=== PATIENT | female | born 1940 | race Caucasian/White ===

== ENCOUNTER → 2017-02-22 | Outpatient (CLI) | payer MEDICARE, OTHER | END | disposition home or self-care (01) | LOC: Rad HDHVI 11:06 | PROVIDERS: ATTEND Internal Medicine Cardiovascular Disease | DX: I70.0 Atherosclerosis of aorta (principal) | CPT/HCPCS: 71020 ==

== ENCOUNTER → 2017-10-24 | Outpatient (CLI) | payer MEDICARE, OTHER ==
[~2017-10-24] VITALS: Ht 162.6 cm; Wt 60.8 kg
[~2017-10-24] MED LIST: ADENOSINE 51 MG in GIVE UN-DILUTED 0 ML IV ONE; ADENOSINE 90 MG/30 ML INJ IV ONE; AML5T PO; ATEN-60 PO; FLUO-125 PO; OMEP20TA PO
== END | disposition home or self-care (01) ==
LOC: Rad HDHVI 12:56
PROVIDERS: ATTEND Internal Medicine Cardiovascular Disease
DX: Z45.018 Encounter for adjustment and management of other part of cardiac pacemaker (principal); I07.1 Rheumatic tricuspid insufficiency; I10 Essential (primary) hypertension; R06.01 Orthopnea
CPT/HCPCS: 78452; 93005; 93306; 96374; 96375; A9500; J0153

== ENCOUNTER → 2017-10-28 | Outpatient (CLI) | payer MEDICARE, OTHER ==
[~2017-10-28] MED LIST changes: -ADENOSINE 51 MG in GIVE UN-DILUTED 0 ML IV ONE; -ADENOSINE 90 MG/30 ML INJ IV ONE
[2017-10-28 08:10] VITALS: BP 131/74
[2017-10-28 08:40] VITALS: BP 145/80
[2017-10-28 12:29] LABS: Basophils # (auto) 0 uL; Basophils % (auto) 0.4 % (0.0-2.0); Eosinophils # (auto) 0.1 uL; Eosinophils % (auto) 1.9 % (0.0-7.0); Hematocrit 34.4 % (36.0-46.0); Hemoglobin 11.6 g/dL (12.2-16.2); Lymphocytes # (auto) 0.6 uL; Lymphocytes % (auto) 21.6 % (10.0-50.0); Mean Corpuscular Hemoglobin 32.4 pg (28.0-32.0); Mean Corpuscular Hgb Conc. 33.9 g/dL (32.0-36.0); Mean Corpuscular Volume 95.7 fL (80.0-100.0); Monocytes # (auto) 0.3 uL; Monocytes % (auto) 8.9 % (0.0-12.0); Neutrophils % (auto) 67.2 % (37.0-80.0); Nucleated Red Blood Cells % 0.3 %; Platelet Count (auto) 106 10^3/uL (140-450); Red Blood Cells 3.59 10^6/uL (4.0-5.20); Red Cell Distribution Width 14.2 % (11.8-14.3)
[2017-10-28 12:30] LABS: BUN/Creatinine Ratio 16.1; Calcium 8.2 mg/dL (8.5-10.1); INR 0.91 (0.9-1.15); Partial Thromboplastin Time 25.1 sec (23.78-33.04); Potassium 3.4 mmol/L (3.5-5.1); Prothrombin Time 9.8 sec (9.27-12.13)
== END | disposition home or self-care (01) ==
LOC: Rad HDHVI 07:46
PROVIDERS: ATTEND Internal Medicine Cardiovascular Disease
DX: Z01.818 Encounter for other preprocedural examination (principal); I70.0 Atherosclerosis of aorta; I25.10 Atherosclerotic heart disease of native coronary artery without angina pectoris
CPT/HCPCS: 36415; 71046; 80048; 85025; 85610; 85730; 93005; G0463

== ENCOUNTER 2017-10-31 06:41 | Day surgery (SDC) | payer MEDICARE, OTHER ==
[~2017-10-31] VITALS: Ht 162.6 cm; Wt 61.2 kg
[2017-10-31] MEDS ORDERED: LIDOCAINE 2%HCL (LOCAL ANESTH.) INJ 20ML MDV ONE (07:22)
[2017-10-31] MEDS ORDERED: ceFAZolin 1GM/100ML 100 ML IV ONE (07:32)
[2017-10-31] MEDS ORDERED: AML5T PO (07:52)
[2017-10-31] MEDS ORDERED: FLUO-125 PO (07:52)
[2017-10-31] MEDS ORDERED: OMEP20TA PO (07:52)
[2017-10-31] MEDS ORDERED: ATEN-60 PO (07:52)
[2017-10-31] MEDS ORDERED: MIDAZOLAM HCL 1MG/1ML-2 ML VIAL ONE (09:13)
[2017-10-31] MEDS ORDERED: VANCOMYCIN HCL 1000 MG VL ONE (09:13)
[2017-10-31] MEDS ORDERED: fentaNYL CITRATE 100 MCG/2 ML VL ONE (09:13)
[2017-10-31] MEDS ORDERED: VANCOMYCIN 1GM/250ML 250 ML IV ONE (09:14)
== END 2017-10-31 12:20 | disposition home or self-care (01) ==
LOC: CATH 06:41
PROVIDERS: ATTEND Internal Medicine Cardiovascular Disease
DX: I49.5 Sick sinus syndrome (principal); Z91.041 Radiographic dye allergy status; E66.9 Obesity, unspecified; I10 Essential (primary) hypertension; Z79.01 Long term (current) use of anticoagulants; Z79.899 Other long term (current) drug therapy
CPT/HCPCS: 82962; 93005; C1785; J0690; J2250; J3010; J3370; J7030; 33228; 99152